=== PATIENT | male | born 1950 | race Two or more races ===

== ENCOUNTER 2016-05-06 09:15 | Day surgery (SDC) | payer BC ==
[2016-05-05 14:00] VITALS: BMI 23.1
[~2016-05-06] VITALS: Ht 162.6 cm; Wt 56.0 kg
[2016-05-06] VITALS (16 sets, daily range): BP systolic 129–182; BP diastolic 76–94; PULSE 69–91; RESP 13–18; Ht 162.6 cm; Wt 56.0 kg
[2016-05-06] MEDS ORDERED: CEFAZOLIN 2 GM/50 ML (PMX) 50 ML IVPB ONE (10:00)
[2016-05-06] MEDS ORDERED: SOD CHLORIDE 0.9% 1,000 ML IV ONE (10:00)
[2016-05-06] MEDS ORDERED: LOSA100T7 PO (10:57)
[2016-05-06] MEDS ORDERED: [UNRECOGNIZED DRUG - OTHER] (10:57)
[2016-05-06] MEDS ORDERED: LIDOCAINE 2% (SDV) 5 ML INJ ONE (12:21)
[2016-05-06] MEDS ORDERED: PROPOFOL 20 ML ONE (12:21)
[2016-05-06] MEDS ORDERED: NEOSTIGMINE 3 MG/3 ML SYRINGE ONE (12:21)
[2016-05-06] MEDS ORDERED: GLYCOPYRROLATE 0.4 MG INJ ONE (12:21)
[2016-05-06] MEDS ORDERED: FENTAnyl 50 MCG/ML VIAL ONE (12:21)
[2016-05-06] MEDS ORDERED: ROCURONIUM 50 MG INJ ONE (12:21)
[2016-05-06] MEDS ORDERED: MIDAZOLAM 1 MG/ML 2 ML INJ ONE (12:21)
[2016-05-06] MEDS ORDERED: SUCCINYLCHOLINE CHLORIDE 100 MG/5 ML SYG IV ONE (12:21)
[2016-05-06] MEDS ORDERED: ONDANSETRON 4 MG INJ ONE (12:22)
[2016-05-06] MEDS ORDERED: FENTAnyl 50 MCG/ML VIAL IV PRN ×2 (12:30)
[2016-05-06] MEDS ORDERED: EPHEDrine SULFATE 50 MG/5 ML SYG IV PRN (12:30)
[2016-05-06] MEDS ORDERED: hydrALAzine 20 MG INJ IV PRN (12:30)
[2016-05-06] MEDS ORDERED: morphine (1 MG/ML) 10ML SYRINGE IV PRN ×3 (12:30)
[2016-05-06] MEDS ORDERED: OXYCODONE/ACETAMINOPHEN (5/325) TAB PO PRN ×2 (12:30)
[2016-05-06] MEDS ORDERED: DIPHENHYDRAMINE 50 MG INJ IV PRN (12:30)
[2016-05-06] MEDS ORDERED: HYDROmorphONE (0.2 MG/ML) 10ML SYG IV PRN ×3 (12:30)
[2016-05-06] MEDS ORDERED: ONDANSETRON 4 MG INJ IV PRN (12:30)
[2016-05-06] MEDS ORDERED: MIDAZOLAM 1 MG/ML 2 ML INJ IV PRN (12:30)
[2016-05-06] MEDS ORDERED: MEPERIDINE 25 MG INJ IV PRN (12:30)
[2016-05-06] MEDS ORDERED: LABETALOL HCL 20MG INJ IV PRN (12:30)
[2016-05-06] MEDS ORDERED: ATROPINE 1 MG/10 ML SYRINGE IV PRN (12:30)
[2016-05-06] MEDS ORDERED: POLYMYXIN/BACITRACIN 1L IRRIG ONE (13:10)
[2016-05-06] MEDS ORDERED: BUPIVACAINE 0.5%/EPI (SDV) 30 ML INJ ONE (13:10)
--- NOTE | 2016-05-06 14:59 | OPR ---
DATE OF OPERATION: 05/06/2016 PREOPERATIVE DIAGNOSIS: Incarcerated right inguinal hernia, rule out hydrocele. POSTOPERATIVE DIAGNOSIS: Large right scrotal hydrocele. OPERATION PERFORMED: Resection of large right scrotal hydrocele. ANESTHESIA: General. ANESTHESIOLOGIST: Dr. Ponce SURGEON: Andrew Lerner MD WEB PRODUCTION MANAGER: None. INDICATIONS FOR PROCEDURE: The patient is a 65-year-old male who presented with a very large right scrotal mass clinically consistent with either a large pursestring hernia or hydrocele. The patient was counseled as to the benefits of surgery, he consented and was scheduled for surgery. DESCRIPTION OF PROCEDURE: The patient was brought to the operating theater, placed under general an esthesia. The right groin region and testicular region was prepped and draped in the usual sterile fashion. Dr. Lerner then attempted to reduce the hernia under anesthesia. It became clear that it w as not reducible and was clinically more consistent with a tense hydrocele. Therefore, approximatel y a 4 cm scrotal incision was made. Dissection continued with cautery down to the hydrocele sac. T he sac was opened, several milliliters of straw-colored hydrocele fluid were evacuated. A large por tion of the sac was then meticulously resected with cautery and sent for pathologic analysis. The r emaining portion of the sac was then imbricated against a scrotal wall in an effort to prevent a rec urrence of the hydrocele. Minimal bleeding was controlled with cautery. The skin was then closed w ith a 3-0 chromic suture in subcuticular fashion, and Dermabond was applied. The patient tolerated procedure well. Estimated blood loss was 10 mL. There were no complications, and the patient was t ransported in stable condition to the recovery room. Dictated By: ANDREW SPENCE/STEPHANIA Conf#: [id number] DID#: [id number]
== END 2016-05-06 17:00 | disposition home or self-care (01) ==
LOC: SDS 09:15
PROVIDERS: ATTEND Surgery Surgical Oncology
DX: N43.3 Hydrocele, unspecified (principal); I10 Essential (primary) hypertension; E11.9 Type 2 diabetes mellitus without complications; Z87.891 Personal history of nicotine dependence
CPT/HCPCS: 55040; 82962; 88304; J0330; J2250; J2710; J3010; Z7512; Z7610; J2405